=== PATIENT | female | born 1985 | race Caucasian/White ===

== ENCOUNTER 2017-03-11 16:08 | Emergency (ER) | payer OTHER ==
[~2017-03-11] VITALS: Ht 177.8 cm; Wt 125.0 kg
[~2017-03-11 16:08] MED LIST: AMOX-366 PO; PREN-100 PO
[2017-03-11 16:11] VITALS: BP 136/90; PULSE 85; RESP 16; O2SAT 100
[2017-03-11 17:08] LABS: BASOPHILS % (AUTO) 0.3 % (0-3); EOSINOPHILS % (AUTO) 0.6 % (0-5); MONOCYTES % (AUTO) 6.5 % (4-12); Mean Corpuscular Hemoglobin 29.5 pg (27.0-35.0); Mean Corpuscular Volume 87.7 fL (81-100); Platelet Count 224 bil/L (150-400)
[2017-03-11 17:28] LABS: APPEARANCE,URINE CLEAR (CLEAR,HAZY); COLOR,URINE STRAW (YELLOW); OCCULT BLOOD,URINE NEGATIVE (NEGATIVE); PH,URINE 6.5 (5.0-8.0); UROBILINOGEN,URINE NORMAL (NORMAL)
[2017-03-11 17:31] LABS: Magnesium 2.1 mg/dL (1.6-2.6)
--- NOTE | 2017-03-11 18:43 | ED.REPORT ---
HPI-Abd Pain F Under 40 Date of Service Mar 11, 2017 ED Provider: Mark Naylor PA-C Sangeetha is an otherwise healthy 31-year-old female presenting to the emergency department with a chief complaint of abdominal pain. Patient reports a one-week history of bilateral lower abdominal pain first noted after leaving work and evening. Associated with recent days with lower back pain. Patient denies other symptoms including fever, chills, chest pain, shortness of breath, bowel pain, vomiting, diarrhea, melena, hematochezia, urinary symptoms, vaginal bleeding/ discharge, bowel/bladder dysfunction, saddle anesthesia, pain/weakness/numbness in lower extremities. Seen in urgent care on Monday, where CT scan, labs were reassuring. Patient was placed on Keflex for UTI. Patient reports a history of 3 vaginal deliveries, tubal ligation. Nursing Notes Stated Complaint: ABDOMINAL AND BACK PAIN Chief Complaint: Female Abdominal Pain Nursing Notes Reviewed: Yes Allergies: Coded Allergies: latex (Verified Allergy, Unknown, 03/11/17) Penicillins (Verified Adverse Reaction, Severe, NAUSEA , VOMITTING, ) TAPE (Verified Adverse Reaction, Unknown, 03/11/17) Scheduled Amoxicillin/Clav K 875-125 mg (Augmentin 875-125 mg) 1 Each Tablet 1 TABLET PO BID Doxycycline Hyclate (Doxycycline Hyclate) 100 Mg Capsule 100 MG PO BID Vits #90/Iron Fum/FA ( Formula Tablet) 1 Each Tablet 1 EACH PO DAILY General Time Seen by MD: 17:08 Chief Complaint Abdominal pain Past Medical History Past Medical History Notes: PCP Dr. Reed at the [facility] residency clinic. CT sinus w/o contrast 04/13/15: IMPRESSION: 1. Mandibular bony destruction at the level of the first molars bilaterally suspicious for soft tissue infection/osteomyelitis. This extends into the inferior aspect of the maxillary sinus on the right. Please correlate clinically 2. Marked left maxillary sinus mucosal thickening. 3. Fluid within multiple paranasal sinuses, some of which have a frothy appearance suspicious for acute sinusitis. 4. Obscured left osteomeatal complex secondary to mucosal thickening. 5. Left nasal berto bullosa. Past Medical History Chronic sinus infection Past Surgical History None Smoking History Never Smoker Social History Other Social History: Ambulatory Status Independent Review of Systems General: Denies fever, chills, malaise. HEENT: Denies congestion, headache, sore throat. Respiratory: Denies dyspnea, cough, shortness of breath, wheezing. Cardiovascular: Denies chest pain, palpitations. Gastrointestinal: Admits abdominal pain, denies diarrhea, melena coming week easier. Genitourinary: Denies frequency, urgency, dysuria, hematuria. Denies Vaginal bleeding/discharge Otherwise as noted in HPI. Physical Exam General: Well appearing, well developed, well nourished, no acute distress. Head: Atraumatic, normocephalic. Eyes: No scleral icterus or injection. No discharge. Vision grossly intact. ENT: Voice clear, hearing grossly intact. Respiratory: Regular rate and rhythm. Breath sounds present, clear to auscultation and equal bilaterally. No respiratory distress. No increased work of breathing, speaks in complete sentences. Cardiovascular: Regular rate and rhythm, without murmur, gallop or rub. No pedal edema. Gastrointestinal: Obese abdomen diffusely tender, most prominently in the lower quadrants without guarding or rebound. Bowel sounds normoactive. Back: Normal to inspection, lumbar midline tenderness, negative CVA tenderness Legs: Trace pitting edema bilaterally, DP pulses 2+ : Normal external genitalia without lesions or discharge. Mucopurulent discharge noted in vaginal canal. Cervix is poorly visualized but noted to be erythematous and friable. The surface of the cervix is irregular on bimanual examination there is mild to moderate CMT. Negative adnexal tenderness Skin: Warm and dry. Neurological: Grossly nonfocal. Psychological: Alert and oriented. Speech appropriate, linear and logical. Behavior appropriate. Initial Vital Signs Vital Signs (First) Date Time Temp Pulse Resp B/P Pulse Ox O2 Delivery O2 Flow Rate FiO2 03/11/17 16:11 36.9 85 16 136/90 100 Room Air Elevated blood pressure Interpretation & Diagnostics Lab Results Interpretation Result Diagram: 03/11/17 1701 03/11/17 1701 Test 03/11/17 17:01 03/11/17 17:02 03/11/17 17:03 03/11/17 18:40 White Blood Count 6.2th/mm3 (3.8-10.1) Red Blood Count 4.71mil/mm3 (3.90-5.20) Hemoglobin 13.9g/dL (12.0-15.6) Hematocrit 41.3% (35.0-46.0) Mean Corpuscular Volume 87.7fL (81-100) Mean Corpuscular Hemoglobin 29.5pg (27.0-35.0) Mean Corpuscular Hemoglobin Concent 33.7% (32.0-37.0) Red Cell Distribution Width 12.6% (12.3-15.4) Platelet Count 224bil/L (150-400) Neutrophils (%) (Auto) 65.0% (40-74) Lymphocytes (%) (Auto) 27.3% (14-46) Monocytes (%) (Auto) 6.5% (4-12) Eosinophils (%) (Auto) 0.6% (0-5) Basophils (%) (Auto) 0.3% (0-3) Sodium Level 137mEq/L (134-144) Potassium Level 4.3mEq/L (3.5-5.2) Chloride Level 100mEq/L (97-108) Carbon Dioxide Level 23mmol/L (18-29) Blood Urea Nitrogen 9mg/dL (6-20) Creatinine 0.57mg/dL (0.57-1.00) Estimat Glomerular Filtration Rate 177mL/min (>59) Glucose Level 98mg/dL (60-99) Calcium Level 9.1mg/dL (8.5-10.1) Magnesium Level 2.1mg/dL (1.6-2.6) Total Bilirubin 0.3mg/dL (0.0-1.2) Aspartate Amino Transf (AST/SGOT) 13U/L (0-50) Alanine Aminotransferase (ALT/SGPT) 13U/L (0-32) Alkaline Phosphatase 53U/L (25-150) Total Protein 7.1g/dL (6.4-8.4) Albumin 4.4g/dL (3.4-5.0) Lipase 27U/L (13-60) Hold Silva Top Tube Received (Received) Urine Color Straw (YELLOW) Urine Appearance Clear (CLEAR,HAZY) Urine pH 6.5 (5.0-8.0) Urine Specific [place] 1.005 (1.003-1.035) Urine Protein Negativemg/dL (NEG,TRACE) Urine Glucose (UA) Negativemg/dL (NEGATIVE) Urine Ketones Negativemg/dL (NEGATIVE) Urine Occult Blood Negative (NEGATIVE) Urine Nitrite Negative (NEGATIVE) Urine Bilirubin Negative (NEGATIVE) Urine Urobilinogen Normalmg/dL (NORMAL) Urine Leukocyte Esterase Trace (NEGATIVE) Urine RBC 0-2/hpf (0-2) Urine WBC 0-5/hpf (0-5) Urine Epithelial Cells Occasional/hpf (NONE-MOD) Urine Crystals None seen (NONE SEEN) Urine Bacteria Few/hpf (NONE-FEW) Urine Hyaline Casts None/lpf (NONE) Urine Granular Casts None seen (NONE SEEN) Urine Waxy Casts None seen (NONE SEEN) Urine Red Blood Cell Casts None seen (NONE SEEN) Urine White Blood Cell Casts None seen (NONE SEEN) Urine Mucus None seen (None Seen) Urine Trichomonas None seen (NONE SEEN) Urine Yeast None (NONE SEEN) Urinalysis Comment None Urine Culture Reflexed Indicated Hold Urine Received (Received) Test 03/11/17 19:23 Re-Eval/Medical Decision Med Decision/Clinical Course Otherwise healthy 31-year-old female presents to the emergency department for lower abdominal pain for the last week. Seen 4 days ago in urgent care for same , receiving a reassuring CT scan, lab tests. Placed on Keflex for UTI. Presents to this department due to ongoing symptoms. Complaint of lower abdominal pain, lower back pain, denies other symptoms. Physical examination reveals diffuse abdominal tenderness most prominently in the lower quadrants. Speculum examination reveals mucopurulent discharge, erythematous and friable cervix. Surface of the cervix is irregular on bimanual examination and there is [id number] CMT. Negative adnexal tenderness. Wet prep positive only for white blood cells. CBC, CMP are unremarkable. Urinalysis is unconvincing for UTI with trace leukocyte esterase, few bacteria. Negative for hematuria, white blood cells. negative. Gen-Probe is sent. Discussed the case with Dr. Jacobson, recommends treating for PID with ceftriaxone and doxycycline, gynecology follow-up. Recommend discontinuing cephalexin. Advised [id number] analgesia, provided a prepack of [place] to supplement with precautions. Provided prepack ondansetron. Advise gynecology follow-up, primary to return precautions. Patient verbalizes understanding of and consented to the plan. Discharge & Departure Primary Impression: Cervicitis Additional Impression: Cervix abnormality Disposition: Home Discharge Condition All VS Reviewed: Yes Condition: Stable Patient Instructions: Cervicitis (ED) Additional Instructions: Evaluation in the emergency department for abdominal pain includes interview, physical examination, lab tests and review of records. Examination is concerning for an infection in your uterus. We have initiated treatment with shot of antibiotics as well as oral antibiotics. I'll provide her with a prescription for doxycycline 100 mg to be taken twice a day for the next 2 weeks. Please be sure to take every dose. Additionally there were some abnormalities noted on your cervix that will require further investigation. 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 The pain is best treated with 400 mg of ibuprofen (Advil, Motrin) every 6 hours. I have written a prescription for a small amount of hydrocodone/ acetaminophen 5/325 mg which can be SUBSTITUTED for the Tylenol to treat more severe pain. Do not take them together, and do not drink alcohol or operate a vehicle within 4 hours of taking this medication. Return to emergency department for any new or worsening symptoms including increasing pain, vaginal discharge, fever. Referrals: Javed Hess MD EDSupervising Provider for APC: Hema Jacobson MD copies to: Javed Hess MD; Kayden Disla MD, Seth PA-C Mar 11, 2017 18:43
[2017-03-11 19:44] VITALS: BP 135/88; PULSE 79; RESP 16; O2SAT 79
[2017-03-11] MEDS ORDERED: cefTRIAXone Inj 250 MG, Lidocaine PF 1% Inj 0.9 ML in Syringe 1 EACH IM ONE (19:50)
[2017-03-11] MEDS ORDERED: HYDROcodone-APAP 5-325 mg Tablet PO ONE (20:25)
[2017-03-11] MEDS ORDERED: _HYDROcodone/APAP 5-325 mg Tablet PO PRN (21:25)
[2017-03-11] MEDS ORDERED: _Ondansetron ODT 4 mg Tablet PO PRN (21:25)
[2017-03-11] MEDS ORDERED: DOXY100C2 PO (21:58)
[2017-03-11 22:05] VITALS: BP 124/85; PULSE 88; RESP 16; O2SAT 95
== END 2017-03-11 22:06 | disposition home or self-care (01) ==
LOC: SED 16:08
DX: N72 Inflammatory disease of cervix uteri (principal); N88.8 Other specified noninflammatory disorders of cervix uteri; M54.5 Low back pain; Z88.0 Allergy status to penicillin; Z91.040 Latex allergy status
CPT/HCPCS: 36415; 80053; 81000; 83690; 83735; 85025; 87086; 87210; 87491; 87591; 96372; 99284; J0696